=== PATIENT | female | born 2000 | race African-American/Black ===

== ENCOUNTER 2023-06-01 13:50 | Emergency (ER) | payer SELFPAY ==
[~2023-06-01] VITALS: Ht 149.9 cm; Wt 52.2 kg
[2023-06-01 13:58] VITALS: BP 121/78; PULSE 97; RESP 16; TEMP 98.4; O2SAT 100
[2023-06-01] MEDS ORDERED: METH-653 MT (14:17)
[2023-06-01] MEDS ORDERED: IBUP-2029 MT (14:17)
[2023-06-01] MEDS ORDERED: METO-293 MT (14:17)
== END 2023-06-01 14:37 | disposition home or self-care (01) ==
LOC: ER 13:50
DX: S13.4XXA Sprain of ligaments of cervical spine, initial encounter (principal); K59.00 Constipation, unspecified; Z87.440 Personal history of urinary (tract) infections; G43.909 Migraine, unspecified, not intractable, without status migrainosus; X58.XXXA Exposure to other specified factors, initial encounter; Y93.89 Activity, other specified; Y92.89 Other specified places as the place of occurrence of the external cause; Y99.8 Other external cause status
CPT/HCPCS: 99283

== ENCOUNTER 2024-12-29 01:43 | Emergency (ER) | payer MEDICAID ==
[~2024-12-29] VITALS: Ht 149.9 cm; Wt 49.0 kg
[~2024-12-29 01:43] MED LIST: IBUP-1455 MT; METH-653 MT; METO-293 MT
[2024-12-29 02:01] VITALS: O2SAT 99
[2024-12-29 03:57] VITALS: BP 111/67; PULSE 88; RESP 16; TEMP 36.8; O2SAT 100
== END 2024-12-29 04:02 | disposition home or self-care (01) ==
LOC: ER 01:43
DX: K64.4 Residual hemorrhoidal skin tags (principal); Z87.440 Personal history of urinary (tract) infections
CPT/HCPCS: 99282